=== PATIENT | female | born 1955 | race African-American/Black ===

== ENCOUNTER 2017-11-18 20:43 | Emergency (ER) | payer OTHER ==
[2017-11-18] VITALS (7 sets, daily range): BP systolic 148–190; BP diastolic 75–97
[~2017-11-18] VITALS: Ht 152.4 cm; Wt 68.0 kg
[2017-11-18] MEDS ORDERED: ASPIRIN PO STA (20:53)
--- NOTE | 2017-11-18 20:55 | PCM.EKG ---
[facility] Test Date: 2017-11-18 Test Time: 20:48:55 Pat Name: SILVIA MORENO Department: Room: Gender: F Open Source Developer: DEO : [id number] Requested By: MARIUSZ LUNDBERG Order Number: [id number] Reading MD: Mariusz LUNDBERG Measurements Intervals [place] Rate: 94 P: 64 MT: 132 QRS: 64 QRSD: 96 T: 51 QT: 332 QTc: 415 Interpretive Statements Normal sinus rhythm Nonspecific T wave abnormality Abnormal ECG No previous ECG available for comparison Electronically Signed On 11-19-2017 0:53:19 CDT by Mariusz LUNDBERG Please click the below link to view image of tracing.
[2017-11-18] MEDS ORDERED: ASPIRIN ONE (20:57)
[2017-11-18 21:05] LABS: BASOPHIL % 0.2 % (0.0-0.2); EOSINOPHIL # 0.2 10^3/uL (0.0-0.2); EOSINOPHIL % 1.9 % (0.0-5.0); HEMOGLOBIN 11.8 g/dL (12.0-15.0); LYMPHOCYTES # 2.7 10^3/uL (1.0-4.8); MEAN CELL HGB 29.4 pg (26-34); MEAN CELL HGB CONCENTRATION 31.2 g/dL (33-37); MEAN PLATELET VOLUME 8.7 fL (7.8-11.0); MONOCYTES # 0.7 10^3/uL (0.3-0.8); MONOCYTES % 8.3 % (5.0-12.0); NEUTROPHIL # 4.6 10^3/uL (1.8-7.7); RED CELL DISTRIBUTION WIDTH 14.6 % (11.5-14.5); WHITE BLOOD CELL 8.3 10^3/uL (4.5-11.0)
--- NOTE | 2017-11-18 21:17 | DIREP ---
PROCEDURE:CHEST 1 VIEW COMPARISON:None. INDICATIONS:CHEST PAIN FINDINGS: LUNGS/PLEURA:No significant pulmonary parenchymal abnormalities. No effusions. VASCULATURE:Normal. Unremarkable pulmonary vasculature. CARDIAC:Normal. No cardiac silhouette abnormality or cardiomegaly. MEDIASTINUM:Atherosclerotic aorta with no visible aneurysm. BONES:Normal. No fracture or visible bony lesion. OTHER:EKG leads overlie the chest. CONCLUSION:No acute cardiopulmonary abnormalities. Dictated by: Darian Williamson M.D. on 11/18/2017 at 09:16 PM
--- NOTE | 2017-11-18 21:20 | ER.PDOC ---
General Chief Complaint: Chest Pain-Cardiac Nature Stated Complaint: CHEST PAIN Time seen by MD: 21:14 Source: patient Exam Limitations: no limitations History of Present Illness Initial Comments Intermittent mid chest pain since last night increasing in intensity and frequency. Severity/Quality: moderate Radiation: back Activities at Onset: rest Prior CP/Workup: No Prior Chest Pain Nitro Today/Relief: 0.4 mg x 1 Aspirin Today: 325 mg x 1 Associated Symptoms: denies symptoms Allergies: Coded Allergies: No Known Allergies (Unverified , 11/18/17) Past Medical History Medical History: GERD, high cholesterol, hypertension, thyroid disease Surgical History: cholecystectomy Social History Smoking: less than 1 pack/day Alcohol Use: rarely Drug Use: none Constitutional: no symptoms reported EENTM: no symptoms reported Respiratory: no symptoms reported Cardiovascular: see HPI Gastrointestinal: no symptoms reported Genitourinary: no symptoms reported All Other Systems: Reviewed and Negative Physical Exam General Appearance: No Apparent Distress, WD/WN HEENT: PERRL/EOMI, Normal ENT Inspection, TMs Normal, Pharynx Normal Neck: Non-Tender, Full Range of Motion, Supple, Normal Inspection Respiratory: chest non-tender, lungs clear, normal breath sounds, no respiratory distress, no accessory muscle use Cardiovascular: Normal Peripheral Pulses, Regular Rate, Rhythm, No Edema, No Gallop, No JVD, No Murmur Gastrointestinal: Normal Bowel Sounds, No Organomegaly, No Pulsatile Mass, Non Tender, Soft Extremities: Normal Range of Motion, Non-Tender, Normal Inspection, No Pedal Edema, No Calf Tenderness, Normal Capillary Refill Neurologic/Psychiatric: early intervention specialist II-XII NML as Tested, No Motor/Sensory Deficits, Alert, Normal Mood/Affect, Oriented x 3 Skin: Normal Color, Warm/Dry Lymphatic: No Adenopathy Results/Orders Results/Orders Laboratory Tests Test 11/18/17 20:50 White Blood Count 8.3 10^3/uL (4.5-11.0) Red Blood Count 4.02 10^6/uL (4.00-5.20) Hemoglobin 11.8 g/dL (12.0-15.0) Hematocrit 37.8 % (36.0-46.0) Mean Corpuscular Volume 94.0 fL (78-100) Mean Corpuscular Hemoglobin 29.4 pg (26-34) Mean Corpuscular Hemoglobin Concent 31.2 g/dL (33-37) Red Cell Distribution Width 14.6 % (11.5-14.5) Platelet Count 318 10^3/uL (150-400) Mean Platelet Volume 8.7 fL (7.8-11.0) Neutrophils (%) (Auto) 56.0 % (41.0-85.0) Lymphocytes (%) (Auto) 33.0 % (24.0-44.0) Monocytes (%) (Auto) 8.3 % (5.0-12.0) Neutrophils # (Auto) 4.6 10^3/uL (1.8-7.7) Lymphocytes # (Auto) 2.7 10^3/uL (1.0-4.8) Monocytes # (Auto) 0.7 10^3/uL (0.3-0.8) Absolute Immature Granulocyte (auto 0.05 10^3 u/L (0-2) Eosinophils % 1.9 % (0.0-5.0) Basophils % 0.2 % (0.0-0.2) Basophils # 0.0 10^3/uL (0.0-0.1) Eosinophil Count 0.2 10^3/uL (0.0-0.2) Percent Immature Gran (Cell Imm) 0.60 % (0.00-0.50) Administered Medications Medications (Trade) Dose Ordered Sig/Leia Route PRN Reason Start Time Stop Time Status Last Admin Dose Admin Aspirin (Aspirin) 325 mg STAT STAT PO 11/18/17 20:53 11/18/17 20:55 DC 11/18/17 20:59 Progress Progress Spoke to Dr. Lopez and Dr. Navarrete and the want me transfer patient to [place] since there is no sheriff detective. EKG/XRAY/CT/US EKG: NSR EKG Comments: No ST elevation XRAY: chest (Nothing acute) Departure Time of Disposition: 23:17 Disposition: 02 XFER SHT-TRM HOSP Impression: Primary Impression: NSTEMI (non-ST elevated myocardial infarction) Condition: Stable Referrals: PCP,UNKNOWN (PCP) PRIMARY CARE PROVIDER Comments Transfer to [facility] ED for Dr. Thompson Duration or Time Spent with Pa: 90 mins Critical Care Note Total Time (mins): 90 MARIUSZ LUNDBERG MD November 18, 2017 21:20
[2017-11-18 21:30] LABS: CALCIUM 9.1 mg/dL (8.4-10.5)
[2017-11-18] MEDS ORDERED: NITROSTAT SL PRN (21:30)
[2017-11-18] MEDS ORDERED: NITROSTAT SL ONE (21:41)
--- NOTE | 2017-11-18 21:45 | NUR ---
DR WARD EDP ON PHONE WITH ED FOR ADMISSION
--- NOTE | 2017-11-18 21:50 | NUR ---
Dr Navarrete EDP on phone with Dr. Navarrete
--- NOTE | 2017-11-18 21:53 | NUR ---
Home Meds Patient voices takes 2 medications at home, doesnt recall names and bottles are at hotel. Family to retrieve bottles.
[2017-11-18] MEDS ORDERED: NITROGLYCERIN 25MG/D5W 250ML 250 ML IV ONE (21:59)
[2017-11-18] MEDS ORDERED: NITROGLYCERIN 25MG/D5W 250ML 250 ML IV STA (22:02)
[2017-11-18] MEDS ORDERED: LOPRESSER IVP STA (22:02)
[2017-11-18] MEDS ORDERED: LOPRESSER ONE (22:17)
[2017-11-18] MEDS ORDERED: LOVENOX SQ STA (22:38)
--- NOTE | 2017-11-18 22:50 | NUR ---
Nitro Nitro decreased to 3 mcg per orders of Dr. Cano
--- NOTE | 2017-11-18 22:55 | NUR ---
Transfer requested at this time
--- NOTE | 2017-11-18 23:04 | NUR ---
Transfer Transfer to [facility] secured at this time. Dr. Thompson accepting. HARPREET Marshall.
[2017-11-18] MEDS ORDERED: SIMV20TA3 PO (23:25)
[2017-11-18] MEDS ORDERED: AMLO1CAP12 PO (23:25)
--- NOTE | 2017-11-18 23:27 | NUR ---
Nitro Increased Nitro to 5 mcg per orders of Dr. Cano.
--- NOTE | 2017-11-18 23:58 | NUR ---
Transfer to [facility] Pt to [facility] via [facility]. Report to Lisa, [employer]in[employer]. Nitro remains infusing at 5mcg. Patient denies pain. Pt alert, oriented and stable. Belonging sent with pt sister, except barbie pants and phone sent with pt.
[2017-11-19] VITALS: BP 158/84
== END 2017-11-19 00:08 | disposition short-term general hospital (02) ==
LOC: ER 20:43
DX: I21.4 Non-ST elevation (NSTEMI) myocardial infarction (principal); E07.9 Disorder of thyroid, unspecified; E78.00 Pure hypercholesterolemia, unspecified; I10 Essential (primary) hypertension; K21.9 Gastro-esophageal reflux disease without esophagitis; F17.200 Nicotine dependence, unspecified, uncomplicated; Z79.82 Long term (current) use of aspirin; Z90.49 Acquired absence of other specified parts of digestive tract
CPT/HCPCS: 36415; 71045; 80053; 82550; 82553; 83880; 84484; 85025; 85379; 85610; 85730; 93005; 96365; 96366; 96375; 99291; 99292; J3490 ×2